=== PATIENT | female | born 1985 | race Hispanic/Latino ===

== ENCOUNTER 2017-02-11 15:01 | Emergency (ER) | payer OTHER ==
[~2017-02-11] VITALS: Ht 170.2 cm; Wt 78.9 kg
[2017-02-11] MEDS ORDERED: PROT1TAB2 PO (15:19)
[2017-02-11] MEDS ORDERED: ZANT1TAB PO (15:19)
[2017-02-11] MEDS ORDERED: NS 1,000 ML IV ONE (16:00)
[2017-02-11] MEDS ORDERED: GI COCKTAIL 50ML BTL(HYOSCYAMINE/MAALOX/LIDOCAINE VISCOUS)(1:3:1) PO ONE ×2 (16:00→18:45)
[2017-02-11] MEDS ORDERED: GASTROGRAFIN SOLUTION 30ML (Q9963) PO ONE ×2 (16:15)
[2017-02-11 16:49] LABS: BASO % 0.3 % (0.0-1.0); EOS # 0.5 K/mm3 (0.0-0.50); LARGE UNSTAINED CELL # 0.1 K/mm3 (0.0-0.4); LARGE UNSTAINED CELL % 1.6 % (0.0-4.0); LYMPH # 2.2 K/mm3 (1.5-4.5); LYMPH % 25.6 % (24.0-44.0); MEAN CORPUSCULAR HEMOGLOBIN 29.4 pg (27.0-33.0); MEAN CORPUSCULAR HGB CONC 32.7 g/dl (32.0-36.5); MEAN CORPUSCULAR VOLUME 90.1 fl (80.0-96.0); MONO # 0.3 K/mm3 (0.0-0.8); MONO % 3.8 % (0.0-5.0); NEUTROPHILS # 5.5 K/mm3 (1.8-7.7); NEUTROPHILS % 62.7 % (36.0-66.0); PLATELET COUNT, AUTOMATED 278 k/mm3 (150-450); RED CELL DISTRIBUTION WIDTH 13.4 % (11.5-14.5); WHITE BLOOD COUNT 8.7 K/mm3 (4.0-10.0)
[2017-02-11 17:34] LABS: CONTROL LINE HCG INT CTR LINE PRESENT
[2017-02-11 17:40] LABS: ALBUMIN/GLOBULIN RATIO 0.98 (1.00-1.93); ALKALINE PHOSPHATASE 67 U/L (45-117); ALT/SGPT 28 U/L (12-78); ANION GAP 6 MEQ/L (8-16); AST/SGOT 18 U/L (15-37); BILIRUBIN,DIRECT < 0.1 MG/DL (0.0-0.2); BILIRUBIN,TOTAL 0.3 MG/DL (0.2-1.0); BLOOD UREA NITROGEN 6 MG/DL (7-18); CALCIUM LEVEL 9.3 MG/DL (8.5-10.1); CARBON DIOXIDE LEVEL 28 MEQ/L (21-32); CHLORIDE LEVEL 105 MEQ/L (98-107); CREATININE FOR GFR 0.78 MG/DL (0.55-1.02); GLOMERULAR FILTRATION RATE > 60.0 (>60); GLUCOSE, FASTING 90 MG/DL (70-105); SODIUM LEVEL 139 MEQ/L (136-145); TOTAL PROTEIN 8.1 GM/DL (6.4-8.2)
[2017-02-11] MEDS ORDERED: ISOVUE-370 76% 100ML VIAL (Q9967) As Ordered ONE (17:42)
--- NOTE | 2017-02-11 18:20 | REP ---
CT abdomen and pelvis with IV and oral contrast: There are no comparisons. The visualized lung thomas are unremarkable. The hepatic parenchyma is unremarkable. There are surgical clips in the gallbladder fossa. Pancreas and spleen are unremarkable. The adrenals and kidneys are unremarkable. The abdominal aorta is unremarkable. There is no bowel distension or obstruction. Pelvis: There is no ascites or adenopathy. The terminal ileum is unremarkable except that it is fluid-filled. The a uterus and adnexa are unremarkable. The bladder is unremarkable. The the patient has an appendectomy. Impression: Essentially negative CT scan of the abdomen pelvis. The patient has an appendectomy. The distal small bowel loops are fluid filled but not significantly distended. This is nonspecific. There is no ascites, adenopathy or mass. Signed by Rayshawn Ashby MD 02/11/2017 06:11 P
[2017-02-11] MEDS ORDERED: SUCR1SS PO (18:37)
[2017-02-11 18:46] VITALS: BP 124/78
== END 2017-02-11 18:46 | disposition home or self-care (01) ==
LOC: M ED 16:46
DX: K29.00 Acute gastritis without bleeding (principal)
CPT/HCPCS: 36415; 74177; 80048; 80076; 83690; 84703; 85025; 99283; Q9963; Q9967

== ENCOUNTER 2017-03-18 13:30 | Outpatient (CLI) | payer OTHER ==
[~2017-03-18] VITALS: Ht 172.7 cm; Wt 78.0 kg
[~2017-03-18 13:30] MED LIST: DEXI60CA PO; NS 1,000 ML IV ONE; PROT1TAB2 PO; SUCR1SS PO; ZANT1TAB PO
[2017-03-18] MEDS ORDERED: PROPOFOL 200 MG/20 ML VIAL As Ordered ONE (14:37)
[2017-03-18] MEDS ORDERED: LIDOCAINE 2% INJ 100 MG/5 ML SDV (FOR ANES.) As Ordered ONE (14:37)
--- NOTE | 2017-03-18 14:41 | ROOR ---
Patient Name: Suzan Nunn Procedure Date: 03/18/2017 2:27 PM Date of : 1985 Age: 31 Room: [facility] Gender: Female Note Status: Finalized Procedure: Upper GI endoscopy Indications: Functional Dyspepsia, Heartburn, Failure to respond to medical treatment Providers: Horacio CARBALLO MD Referring MD: SUMA MOISE MD Requesting Provider: Medicines: Monitored Anesthesia Care Complications: No immediate complications. Procedure: Pre-Anesthesia Assessment: - The heart rate, respiratory rate, oxygen saturations, blood pressure, adequacy of pulmonary ventilation, and response to care were monitored throughout the procedure. The Endoscope was introduced through the mouth, and advanced to the second part of duodenum. The upper GI endoscopy was accomplished without difficulty. The patient tolerated the procedure well. Findings: The examined esophagus was normal. This was biopsied with a cold forceps for evaluation of eosinophilic esophagitis. Minimal inflammation characterized by erythema was found in the entire examined stomach. Biopsies were taken with a cold forceps for Helicobacter pylori testing. The examined duodenum was normal. Impression: - Normal esophagus. Biopsied. - Minimal Gastritis. Biopsied. - Normal examined duodenum. Recommendation: - Await pathology results. - Continue present medications. - Avoid lactose consideration may be given to a trial on hyoscyamine or dicyclomine for non ulcer dypepsia (NUD). - Follow an antireflux regimen. Horacio Carballo MD Horacio CARBALLO MD 03/18/2017 2:41:12 PM This report has been signed electronically. Number of Addenda: 0 Note Initiated On: 03/18/2017 2:27 PM Estimated Blood Loss: Estimated blood loss: none.
[2017-03-18 15:05] VITALS: BP 109/56
== END 2017-03-18 15:10 | disposition home or self-care (01) ==
LOC: M OPP 13:30
PROVIDERS: ATTEND Internal Medicine Gastroenterology
DX: K29.70 Gastritis, unspecified, without bleeding (principal); K21.9 Gastro-esophageal reflux disease without esophagitis; J45.909 Unspecified asthma, uncomplicated; Z79.899 Other long term (current) drug therapy; Z88.8 Allergy status to other drugs, medicaments and biological substances

== ENCOUNTER 2017-03-18 15:51 | Emergency (ER) | payer OTHER ==
[~2017-03-18] VITALS: Ht 172.7 cm; Wt 79.8 kg
[~2017-03-18 15:51] MED LIST changes: -NS 1,000 ML IV ONE
[2017-03-18 15:57] VITALS: BP 122/73
[2017-03-18] MEDS ORDERED: MORPHINE 4 MG/ML 1ML SYRINGE IV ONE (16:00)
[2017-03-18] MEDS ORDERED: METOCLOPRAMIDE INJ 10MG/2ML VIAL (J2765) IV ONE (16:00)
[2017-03-18] MEDS ORDERED: NS 1,000 ML IV SCH (16:00)
[2017-03-18 16:19] LABS: BASO % 0.5 % (0.0-1.0); EOS # 0.4 K/mm3 (0.0-0.50); EOS % 5.8 % (0.0-3.0); LARGE UNSTAINED CELL # 0.2 K/mm3 (0.0-0.4); LYMPH # 2.4 K/mm3 (1.5-4.5); LYMPH % 29.3 % (24.0-44.0); MEAN CORPUSCULAR HEMOGLOBIN 30.5 pg (27.0-33.0); MEAN CORPUSCULAR HGB CONC 33.8 g/dl (32.0-36.5); MONO # 0.4 K/mm3 (0.0-0.8); MONO % 4.5 % (0.0-5.0); NEUTROPHILS # 4.5 K/mm3 (1.8-7.7); PLATELET COUNT, AUTOMATED 287 k/mm3 (150-450); RED CELL DISTRIBUTION WIDTH 13.5 % (11.5-14.5); WHITE BLOOD COUNT 7.7 K/mm3 (4.0-10.0)
[2017-03-18] MEDS ORDERED: GASTROGRAFIN SOLUTION 30ML (Q9963) PO ONE (16:20)
[2017-03-18 16:24] LABS: INR 1.02
[2017-03-18 16:37] LABS: ALBUMIN 3.4 GM/DL (3.2-5.2); ALBUMIN/GLOBULIN RATIO 0.89 (1.00-1.93); ALKALINE PHOSPHATASE 48 U/L (45-117); ALT/SGPT 26 U/L (12-78); ANION GAP 6 MEQ/L (8-16); AST/SGOT 20 U/L (15-37); BILIRUBIN,DIRECT < 0.1 MG/DL (0.0-0.2); BILIRUBIN,TOTAL 0.2 MG/DL (0.2-1.0); BLOOD UREA NITROGEN 9 MG/DL (7-18); CALCIUM LEVEL 8.2 MG/DL (8.5-10.1); CARBON DIOXIDE LEVEL 26 MEQ/L (21-32); CHLORIDE LEVEL 111 MEQ/L (98-107); CREATININE FOR GFR 0.77 MG/DL (0.55-1.02); GLOMERULAR FILTRATION RATE > 60.0 (>60); GLUCOSE, FASTING 99 MG/DL (70-105); POTASSIUM SERUM 3.6 MEQ/L (3.5-5.1); SODIUM LEVEL 143 MEQ/L (136-145); TOTAL PROTEIN 7.2 GM/DL (6.4-8.2)
[2017-03-18] MEDS ORDERED: GI COCKTAIL 50ML BTL(HYOSCYAMINE/MAALOX/LIDOCAINE VISCOUS)(1:3:1) PO ONE (16:45)
[2017-03-18] MEDS ORDERED: GASTROGRAFIN SOLUTION 30ML PO ONE (16:50)
[2017-03-18] MEDS ORDERED: ISOVUE-370 76% 100ML VIAL (Q9967) As Ordered ONE (17:29)
--- NOTE | 2017-03-18 18:04 | REP ---
Clinical: Abdominal pain with recent endoscopy. Technique: Axial contrast enhanced images from the lung bases to the pubic symphysis using oral and 100 ml Isovue 370 intravenous contrast material with coronal and sagittal re-formations. Comparison: 02/11/2017. Findings: Lung bases clear. Visualized heart and pericardium normal. Liver, spleen, pancreas, bilateral adrenal glands and kidneys are normal. The patient is status post cholecystectomy. The enteric system is without obstruction or acute inflammatory process and a normal terminal ileum and appendix are identified in the right lower quadrant. Pelvis demonstrates normal bladder and age-appropriate uterus/adnexa. No ascites. No free air. No adenopathy. Vasculature is normal. Musculoskeletal structures are intact. Impression: Normal contrast enhanced CT of the abdomen and pelvis. No acute intra-abdominal or pelvic pathology appreciated. Signed by Alex Quintanilla MD 03/18/2017 05:56 P
== END 2017-03-18 18:36 | disposition home or self-care (01) ==
LOC: M ED 16:23
DX: R10.9 Unspecified abdominal pain (principal)
CPT/HCPCS: 74177; 80048; 80076; 83690; 85025; 85610; 96374; 96375; 99283; J2765; Q9963; Q9967

== ENCOUNTER 2017-05-13 19:47 | Emergency (ER) | payer OTHER ==
[~2017-05-13] VITALS: Ht 170.2 cm; Wt 86.5 kg
[~2017-05-13 19:47] MED LIST changes: -DEXI60CA PO; +DEXI60CA2 PO
[2017-05-13 19:48] VITALS: BP 121/76
[2017-05-13] MEDS ORDERED: NORCOTAB PO (21:23)
[2017-05-13] MEDS ORDERED: AMOX500C PO (21:23)
[2017-05-13] MEDS ORDERED: AMOXICILLIN 500 MG CAP PO ONE (21:30)
[2017-05-13] MEDS ORDERED: NORCO 5/325MG TABLET (BULK FOR ED) PO ONE (22:00)
== END 2017-05-13 21:51 | disposition home or self-care (01) ==
LOC: M ED 19:47
DX: K02.9 Dental caries, unspecified (principal)

== ENCOUNTER 2017-06-22 13:42 | Emergency (ER) | payer OTHER ==
[~2017-06-22] VITALS: Ht 172.7 cm; Wt 85.6 kg
[~2017-06-22 13:42] MED LIST changes: +AMOX500C PO; +NORCOTAB PO
[2017-06-22] MEDS ORDERED: NS 1,000 ML IV ONE (14:45)
[2017-06-22 15:09] LABS: CONTROL LINE UCG INT CTR LINE PRESENT
[2017-06-22 15:17] LABS: BASO # 0.1 K/mm3 (0.0-0.2); BASO % 1.1 % (0.0-1.0); EOS # 0.4 K/mm3 (0.0-0.50); EOS % 4.9 % (0.0-3.0); LARGE UNSTAINED CELL # 0.1 K/mm3 (0.0-0.4); LARGE UNSTAINED CELL % 1.5 % (0.0-4.0); LYMPH # 2.5 K/mm3 (1.5-4.5); LYMPH % 31.9 % (24.0-44.0); MEAN CORPUSCULAR HEMOGLOBIN 29.6 pg (27.0-33.0); MEAN CORPUSCULAR HGB CONC 32.7 g/dl (32.0-36.5); MEAN CORPUSCULAR VOLUME 90.6 fl (80.0-96.0); MONO # 0.3 K/mm3 (0.0-0.8); MONO % 3.6 % (0.0-5.0); NEUTROPHILS # 4.3 K/mm3 (1.8-7.7); PLATELET COUNT, AUTOMATED 321 k/mm3 (150-450); RED CELL DISTRIBUTION WIDTH 13.8 % (11.5-14.5); WHITE BLOOD COUNT 7.6 K/mm3 (4.0-10.0)
[2017-06-22 15:23] LABS: ALBUMIN 3.9 GM/DL (3.2-5.2); ALBUMIN/GLOBULIN RATIO 1.08 (1.00-1.93); ALKALINE PHOSPHATASE 39 U/L (45-117); ALT/SGPT 22 U/L (12-78); AMYLASE 34 U/L (25-115); ANION GAP 8 MEQ/L (8-16); AST/SGOT 25 U/L (15-37); BILIRUBIN,DIRECT < 0.1 MG/DL (0.0-0.2); BILIRUBIN,TOTAL 0.4 MG/DL (0.2-1.0); BLOOD UREA NITROGEN 7 MG/DL (7-18); CALCIUM LEVEL 8.9 MG/DL (8.5-10.1); CARBON DIOXIDE LEVEL 27 MEQ/L (21-32); CHLORIDE LEVEL 106 MEQ/L (98-107); CREATININE FOR GFR 0.68 MG/DL (0.55-1.02); GLOMERULAR FILTRATION RATE > 60.0 (>60); GLUCOSE, FASTING 94 MG/DL (70-105); POTASSIUM SERUM 4.2 MEQ/L (3.5-5.1); SODIUM LEVEL 141 MEQ/L (136-145); TOTAL PROTEIN 7.5 GM/DL (6.4-8.2)
[2017-06-22] MEDS ORDERED: ISOVUE-370 76% 100ML VIAL (Q9967) As Ordered ONE (15:28)
--- NOTE | 2017-06-22 16:11 | REP ---
CT abdomen and pelvis with IV but without oral contrast: History: Right lower quadrant pain. CT contrast dose: 100 mL of intravenous Isovue 370. Comparison CT study: March 18, 2017. CT findings: Preliminary digital flame hardener radiograph shows clips in right upper quadrant, but is otherwise unremarkable. The lung bases are clear on axial CT images. The liver and the spleen are normal in size and homogeneous in texture. No adrenal lesion is seen. The patient is status post cholecystectomy. Pancreas is unremarkable. The kidneys enhance symmetrically and are morphologically intact. Normal caliber aorta is seen. No retroperitoneal mass or adenopathy is seen. A non-inflamed normal-sized appendix is seen in the right lower quadrant. This despite the fact that the patient apparently reported that she is status post appendectomy. The appendix is unchanged in appearance from the CT study of January [address] study of February 2017. Small and large bowel loops are unremarkable. No abdominal wall defect is seen. No uterine or ovarian abnormality is seen. Urinary bladder is unremarkable. Bone window settings show no bony destructive lesion. Impression: Status post cholecystectomy. The appendix is seen and has a normal appearance. No acute abdominal or pelvic abnormality. Signed by Garland Muro MD 06/22/2017 05:07 P
[2017-06-22] MEDS ORDERED: KETOROLAC 30 MG/ML VIAL (J1885) IV ONE (16:15)
[2017-06-22] MEDS ORDERED: ZOFR4TAB3 PO (16:22)
[2017-06-22 16:30] VITALS: BP 118/76
== END 2017-06-22 16:32 | disposition home or self-care (01) ==
LOC: M ED 13:42
DX: R10.31 Right lower quadrant pain (principal)
CPT/HCPCS: 74177; 80048; 80076; 81001; 82150; 83690; 84703; 85025; 96361; 96374; 99284; J1885; Q9967

== ENCOUNTER 2017-10-21 20:06 | Emergency (ER) | payer OTHER ==
[2017-10-21] MEDS: AMOXICILLIN 500 MG CAP PO (21:59)
== END 2017-10-21 22:09 | disposition home or self-care (01) ==
LOC: M ED 20:06
DX: J32.9 Chronic sinusitis, unspecified (principal); J45.909 Unspecified asthma, uncomplicated; G43.909 Migraine, unspecified, not intractable, without status migrainosus; Z88.8 Allergy status to other drugs, medicaments and biological substances
CPT/HCPCS: 99283

== ENCOUNTER 2018-02-12 15:36 | Emergency (ER) | payer OTHER ==
[2018-02-12] MEDS: NS 1,000 ML IV (16:45)
[2018-02-12] MEDS: MORPHINE 4 MG/ML 1ML VIAL/SYRINGE (J2270) IV ×2 (17:00→17:58)
[2018-02-12] MEDS: METOCLOPRAMIDE INJ 10MG/2ML VIAL (J2765) IV (17:00)
[2018-02-12] MEDS: diphenhydrAMINE INJ 50MG/ML VIAL (J1200) IV (17:00)
[2018-02-12] MEDS: PANTOPRAZOLE 40MG INJ (PROTONIX) (C9113) IV (17:46)
[2018-02-12] MEDS: GI COCKTAIL 50ML BTL(HYOSCYAMINE/MAALOX/LIDOCAINE VISCOUS)(1:3:1) PO (17:46)
[2018-02-12] MEDS ORDERED: ISOVUE-370 76% 100ML VIAL (Q9967) As Ordered (17:51)
[2018-02-12] MEDS: ONDANSETRON 4MG/2ML VIAL (J2405) IV (17:58)
[2018-02-12] MEDS: SUCRALFATE 1 GM TAB PO (17:58)
[2018-02-12 19:37] LABS: BASO # 0.1 10^3/uL (0.0-0.2); BASO % 0.4 % (0.0-1.0); EOS # 0.4 10^3/uL (0.0-0.50); EOS % 2.9 % (0.0-3.0); HEMATOCRIT 45.4 % (36.0-47.0); HEMOGLOBIN 14.9 g/dl (12.0-15.5); IMMATURE GRANULOCYTE % 0.3 % (0-3.0); LYMPH # 3.1 10^3/uL (1.5-4.5); LYMPH % 20.5 % (24.0-44.0); MEAN CORPUSCULAR HEMOGLOBIN 29.2 pg (27.0-33.0); MEAN CORPUSCULAR HGB CONC 32.8 g/dl (32.0-36.5); MONO # 1.2 10^3/uL (0.0-0.8); MONO % 7.7 % (0.0-5.0); NEUTROPHILS # 10.2 10^3/uL (1.8-7.7); NEUTROPHILS % 68.2 % (36.0-66.0); PLATELET COUNT, AUTOMATED 363 10^3/uL (150-450); RED CELL DISTRIBUTION WIDTH 14.2 % (11.5-14.5)
[2018-02-12 20:04] LABS: ALBUMIN 3.9 GM/DL (3.2-5.2); ALBUMIN/GLOBULIN RATIO 1.18 (1.00-1.93); ALKALINE PHOSPHATASE 49 U/L (45-117); ALT/SGPT 16 U/L (12-78); AMYLASE 36 U/L (25-115); ANION GAP 8 MEQ/L (8-16); AST/SGOT 24 U/L (7-37); BILIRUBIN,DIRECT < 0.1 MG/DL (0.0-0.2); BILIRUBIN,TOTAL 0.3 MG/DL (0.2-1.0); BLOOD UREA NITROGEN 8 MG/DL (7-18); CALCIUM LEVEL 8.7 MG/DL (8.5-10.1); CARBON DIOXIDE LEVEL 25 MEQ/L (21-32); CHLORIDE LEVEL 109 MEQ/L (98-107); CREATININE FOR GFR 0.78 MG/DL (0.55-1.30); GLOMERULAR FILTRATION RATE > 60.0 (>60); GLUCOSE, FASTING 86 MG/DL (70-100); LIPASE 105 U/L (73-393); POTASSIUM SERUM 4.1 MEQ/L (3.5-5.1); SODIUM LEVEL 142 MEQ/L (136-145); TOTAL PROTEIN 7.2 GM/DL (6.4-8.2)
[2018-02-12 20:16] LABS: HIVSOURCE0 NEGATIVE (NEGATIVE)
[2018-02-12 20:19] LABS: CONTROL LINE INT CTR LINE PRESENT; HIV SOURCE PT 1 NEGATIVE (NEGATIVE)
[2018-02-13 11:33] LABS: HEPATITIS B SURFACE ANTIGEN NEGATIVE (NEGATIVE)
[2018-02-13 12:01] LABS: HEP C VIRUS AB INDEX SOURCE PT < 0.0 INDEX (0.0-0.8)
== END 2018-02-12 20:40 | disposition home or self-care (01) ==
LOC: M ED 15:36
DX: G43.909 Migraine, unspecified, not intractable, without status migrainosus (principal); K52.9 Noninfective gastroenteritis and colitis, unspecified; J45.909 Unspecified asthma, uncomplicated; Z79.899 Other long term (current) drug therapy; Z88.6 Allergy status to analgesic agent
CPT/HCPCS: C9113

== ENCOUNTER 2018-03-13 18:38 | Emergency (ER) | payer OTHER ==
[2018-03-13] MEDS: GI COCKTAIL 50ML BTL(HYOSCYAMINE/MAALOX/LIDOCAINE VISCOUS)(1:3:1) PO (21:15)
[2018-03-13 21:23] LABS: BASO % 0.4 % (0.0-1.0); EOS # 0.4 10^3/uL (0.0-0.50); EOS % 4.7 % (0.0-3.0); HEMATOCRIT 45.3 % (36.0-47.0); HEMOGLOBIN 15.1 g/dl (12.0-15.5); IMMATURE GRANULOCYTE % 0.2 % (0-3.0); LYMPH # 3.1 10^3/uL (1.5-4.5); LYMPH % 32.9 % (24.0-44.0); MEAN CORPUSCULAR HEMOGLOBIN 29.3 pg (27.0-33.0); MEAN CORPUSCULAR HGB CONC 33.3 g/dl (32.0-36.5); MEAN CORPUSCULAR VOLUME 87.8 fl (80.0-96.0); MONO # 0.6 10^3/uL (0.0-0.8); MONO % 6.5 % (0.0-5.0); NEUTROPHILS # 5.2 10^3/uL (1.8-7.7); NEUTROPHILS % 55.3 % (36.0-66.0); PLATELET COUNT, AUTOMATED 354 10^3/uL (150-450); RED BLOOD COUNT 5.16 10^6/uL (4.00-5.40); RED CELL DISTRIBUTION WIDTH 14.5 % (11.5-14.5); WHITE BLOOD COUNT 9.3 10^3/uL (4.0-10.0)
[2018-03-13 21:38] LABS: CONTROL LINE HCG INT CTR LINE PRESENT; HCG, SERUM QUALITATIVE NEGATIVE (NEGATIVE)
[2018-03-13 21:47] LABS: ALBUMIN 3.9 GM/DL (3.2-5.2); ALBUMIN/GLOBULIN RATIO 1.15 (1.00-1.93); ALKALINE PHOSPHATASE 38 U/L (45-117); ALT/SGPT 17 U/L (12-78); AMYLASE 39 U/L (25-115); ANION GAP 7 MEQ/L (8-16); AST/SGOT 12 U/L (7-37); BILIRUBIN,DIRECT 0.1 MG/DL (0.0-0.2); BILIRUBIN,TOTAL 0.3 MG/DL (0.2-1.0); BLOOD UREA NITROGEN 10 MG/DL (7-18); CALCIUM LEVEL 8.9 MG/DL (8.5-10.1); CARBON DIOXIDE LEVEL 26 MEQ/L (21-32); CHLORIDE LEVEL 110 MEQ/L (98-107); CREATININE FOR GFR 0.72 MG/DL (0.55-1.30); GLOMERULAR FILTRATION RATE > 60.0 (>60); GLUCOSE, FASTING 99 MG/DL (70-100); LIPASE 121 U/L (73-393); POTASSIUM SERUM 3.9 MEQ/L (3.5-5.1); SODIUM LEVEL 143 MEQ/L (136-145); TOTAL PROTEIN 7.3 GM/DL (6.4-8.2)
== END 2018-03-13 22:09 | disposition home or self-care (01) ==
LOC: M ED 18:38
DX: K21.0 Gastro-esophageal reflux disease with esophagitis (principal); G43.909 Migraine, unspecified, not intractable, without status migrainosus; Z88.6 Allergy status to analgesic agent; Z79.899 Other long term (current) drug therapy
CPT/HCPCS: 82150

== ENCOUNTER 2018-04-20 16:12 | Emergency (ER) | payer OTHER ==
[2018-04-20 16:59] LABS: KETONE, URINE AUTO RFX NEGATIVE (NEGATIVE); LEUKOCYTE ESTERASE UR AUTO RFX NEGATIVE (NEGATIVE); NITRITE, URINE AUTO RFX NEGATIVE (NEGATIVE); RBC, URINE AUTO RFX 0 /HPF (0-3); SPECIFIC GRAVITY UR AUTO RFX 1.003 (1.002-1.035); SQUAM EPITHELIAL CELL UR AURFX 1 /HPF (0-6); WBC, URINE AUTO RFX 1 /HPF (0-3)
[2018-04-20 17:49] LABS: BASO # 0.1 10^3/uL (0.0-0.2); BASO % 0.5 % (0.0-1.0); EOS # 0.3 10^3/uL (0.0-0.50); EOS % 3.1 % (0.0-3.0); HEMATOCRIT 44.1 % (36.0-47.0); HEMOGLOBIN 15.1 g/dl (12.0-15.5); IMMATURE GRANULOCYTE % 0.3 % (0-3.0); LYMPH # 2.8 10^3/uL (1.5-4.5); LYMPH % 28.5 % (24.0-44.0); MEAN CORPUSCULAR HEMOGLOBIN 29.5 pg (27.0-33.0); MEAN CORPUSCULAR HGB CONC 34.2 g/dl (32.0-36.5); MEAN CORPUSCULAR VOLUME 86.3 fl (80.0-96.0); MONO # 0.6 10^3/uL (0.0-0.8); MONO % 5.6 % (0.0-5.0); NEUTROPHILS # 6.1 10^3/uL (1.8-7.7); PLATELET COUNT, AUTOMATED 340 10^3/uL (150-450); RED BLOOD COUNT 5.11 10^6/uL (4.00-5.40); RED CELL DISTRIBUTION WIDTH 14.3 % (11.5-14.5); WHITE BLOOD COUNT 9.9 10^3/uL (4.0-10.0)
[2018-04-20] MEDS: NS 1,000 ML IV (17:51)
[2018-04-20] MEDS: ONDANSETRON 4MG/2ML VIAL (J2405) IV (17:51)
[2018-04-20] MEDS: MORPHINE 4 MG/ML 1ML VIAL/SYRINGE (J2270) IV (17:52)
[2018-04-20 18:09] LABS: ANION GAP 8 MEQ/L (8-16); BLOOD UREA NITROGEN 9 MG/DL (7-18); CALCIUM LEVEL 8.8 MG/DL (8.5-10.1); CARBON DIOXIDE LEVEL 25 MEQ/L (21-32); CHLORIDE LEVEL 109 MEQ/L (98-107); CREATININE FOR GFR 0.73 MG/DL (0.55-1.30); GLOMERULAR FILTRATION RATE > 60.0 (>60); GLUCOSE, FASTING 96 MG/DL (70-100); POTASSIUM SERUM 3.9 MEQ/L (3.5-5.1); SODIUM LEVEL 142 MEQ/L (136-145)
== END 2018-04-20 19:11 | disposition home or self-care (01) ==
LOC: M ED 16:12
DX: M54.5 Low back pain (principal); K21.9 Gastro-esophageal reflux disease without esophagitis; Z98.890 Other specified postprocedural states; Z88.8 Allergy status to other drugs, medicaments and biological substances
CPT/HCPCS: J2270

== ENCOUNTER 2018-06-07 11:04 | Emergency (ER) | payer OTHER ==
[2018-06-07] MEDS: NS 1,000 ML IV (12:48)
[2018-06-07] MEDS: KETOROLAC 30 MG/ML VIAL (J1885) IV (12:49)
[2018-06-07] MEDS: METOCLOPRAMIDE INJ 10MG/2ML VIAL (J2765) IV (12:49)
[2018-06-07] MEDS: diphenhydrAMINE INJ 50MG/ML VIAL (J1200) IV (12:50)
[2018-06-07 12:53] LABS: BASO # 0.1 10^3/uL (0.0-0.2); BASO % 0.6 % (0.0-1.0); EOS # 0.4 10^3/uL (0.0-0.50); EOS % 5.3 % (0.0-3.0); HEMATOCRIT 40.9 % (36.0-47.0); HEMOGLOBIN 13.5 g/dl (12.0-15.5); IMMATURE GRANULOCYTE % 0.5 % (0-3.0); LYMPH # 2.2 10^3/uL (1.5-4.5); MEAN CORPUSCULAR HEMOGLOBIN 29.3 pg (27.0-33.0); MEAN CORPUSCULAR VOLUME 88.9 fl (80.0-96.0); MONO # 0.6 10^3/uL (0.0-0.8); MONO % 7.7 % (0.0-5.0); NEUTROPHILS # 4.8 10^3/uL (1.8-7.7); NEUTROPHILS % 58.9 % (36.0-66.0); PLATELET COUNT, AUTOMATED 399 10^3/uL (150-450); RED CELL DISTRIBUTION WIDTH 15.6 % (11.5-14.5); WHITE BLOOD COUNT 8.2 10^3/uL (4.0-10.0)
[2018-06-07 13:53] LABS: ANION GAP 8 MEQ/L (8-16); BLOOD UREA NITROGEN 8 MG/DL (7-18); CALCIUM LEVEL 8.7 MG/DL (8.5-10.1); CARBON DIOXIDE LEVEL 26 MEQ/L (21-32); CHLORIDE LEVEL 112 MEQ/L (98-107); CREATININE FOR GFR 0.72 MG/DL (0.55-1.30); GLOMERULAR FILTRATION RATE > 60.0 (>60); GLUCOSE, FASTING 89 MG/DL (70-100); SODIUM LEVEL 146 MEQ/L (136-145)
== END 2018-06-07 14:14 | disposition home or self-care (01) ==
LOC: M ED 11:04
DX: G43.909 Migraine, unspecified, not intractable, without status migrainosus (principal); J45.909 Unspecified asthma, uncomplicated; Z79.899 Other long term (current) drug therapy; Z88.6 Allergy status to analgesic agent
CPT/HCPCS: J1200